=== PATIENT | female | born 1975 | race Caucasian/White ===

== ENCOUNTER 2017-02-27 16:43 | Emergency (ER) | payer MEDICAID ==
[2017-02-27 16:54] VITALS: BP 110/76; PULSE 76; RESP 16; TEMP 98.6; O2SAT 98
--- NOTE | 2017-02-27 17:08 | EDPHY ---
H & P Stated Complaint: L rib area pain/strain tender -after pulling junfrederic weeks 2 weeks ago- Time Seen by Provider: 02/27/17 16:57 HPI/ROS: CHIEF COMPLAINT: Left lower rib pain after pulling a weeks HISTORY OF PRESENT ILLNESS: 42-year-old female, daily smoker, complaining of left lower rib pain which started immediately when she was at work 2 weeks ago pulling a a weeks out of the ground, describes right difficult applied of the ground and felt a pop sensation her left lower ribs. This pain continues and is reproducible with inspiration, palpation. She exercises daily, runs daily and never experiences dyspnea with exertion or chest pain with exertion, never has to cease activity secondary to unexpected exertion. She denies abdominal pain. PRIMARY CARE PROVIDER: REVIEW OF SYSTEMS: A ten point review of systems was performed and is negative with the exception of the items mentioned in the HPI PAST MEDICAL & SURGICAL HISTORY: No pertinent medical or surgical history SOCIAL HISTORY: PHYSICAL EXAM (Prior to examination, patient consented to physical exam, hands were washed and my usual and customary physical exam procedures followed) 1) GENERAL: Well-developed, well-nourished, alert and oriented. Appears to be in no acute distress. 2) HEAD: Normocephalic, atraumatic 3) HEENT: Pupils equal, round, reactive to light bilaterally. Sclera anicteric. 4) NECK: Full range of motion, no meningeal signs. 5) LUNGS: Clear auscultation bilaterally, no wheezes, no rhonchi, no retractions. 6) HEART: Regular rate and rhythm, no murmur, no heave, no gallop. For tender to palpation left lower ribs anterior axillary line with no visible abnormality. 7) ABDOMEN: No guarding, no rebound, no focal tenderness, negative McBurney's, negative Knight's, negative Rovsing's, negative peritoneal sign, no splenomegaly or left upper quadrant abdominal pain 8) MUSCULOSKELETAL: Moving all extremities, no focal areas of tenderness, no obvious trauma. No peripheral edema or discoloration. 9) BACK: No CVA tenderness, no midline vertebral tenderness, no fluctuance, no step-off, no obvious trauma, no visual or palpable abnormality. 10) SKIN: No rash, no petechiae. 11) Psychiatric: Patient is oriented X 3, there is no agitation. DIFFERENTIAL DIAGNOSIS: in no particular order including but limited to fracture, sprain, pneumothorax, hemothorax - Personal History LMP (Females 10-55): 8-14 Days Ago Current Tetanus/Diphtheria Vaccine: Unsure Current Tetanus Diphtheria and Acellular Pertussis (TDAP): Unsure - Medical/Surgical History Hx Asthma: No Hx Chronic Respiratory Disease: No Hx Diabetes: No Hx Cardiac Disease: No Hx Renal Disease: No Hx Cirrhosis: No Hx Alcoholism: No Hx HIV/AIDS: No Hx Splenectomy or Spleen Trauma: No Other PMH: cristi, r shoulder issues, deg disk disease - Social History Smoking Status: Never smoked Constitutional: Initial Vital Signs Temperature (C) 37.0 C 02/27/17 16:50 Heart Rate 76 02/27/17 16:50 Respiratory Rate 16 02/27/17 16:50 Blood Pressure 110/76 02/27/17 16:50 O2 Sat (%) 98 02/27/17 16:50 O2 Delivery Mode Room Air Allergies/Adverse Reactions: hydromorphone [From Dilaudid] Allergy (Verified 02/27/17 16:49) risperidone [From Risperdal] Allergy (Verified 02/27/17 16:49) trazodone Allergy (Verified 02/27/17 16:49) Home Medications: Medication Instructions Recorded Cyclobenzaprine [Flexeril 10 MG 10 mg PO TID #10 tab 02/27/17 (RX)] Flexeril 02/27/17 Lyrica 02/27/17 Prevacid 02/27/17 Wellbutrin Xl 02/27/17 Medical Decision Making ED Course/Re-evaluation: Patient is low risk for pulmonary embolus, not tachycardic, not tachypneic, no coagulopathic disorder, no exogenous estrogen use. Doubt splenic pathology, doubt pulmonary embolus, doubt pneumothorax, doubt cardiac etiology. We discussed possible rib contusion or pathology. Patient has been given incentive spirometer. I discussed her negative x-ray. She has been given Flexeril and usual precautions, given work note.Care of patient under supervision of secondary supervising physician Dr Richard . Departure - Departure Disposition: Home, Routine, Self-Care Clinical Impression: Rib pain on left side Condition: Good Instructions: Rib Contusion (ED) Additional Instructions: Use your incentive spirometer every hour while awake. Seek immediate medical attention develop new or worsening symptoms. Referrals: NASIM GIANG [Other] - 1-2 days without fail Stand Alone Forms: Work Limited Duty Prescriptions: Cyclobenzaprine [Flexeril 10 MG (RX)] 10 mg PO TID #10 tab
== END 2017-02-27 17:45 | disposition home or self-care (01) ==
DX: S29.9XXA Unspecified injury of thorax, initial encounter (principal); X50.9XXA Other and unspecified overexertion or strenuous movements or postures, initial encounter; Y92.89 Other specified places as the place of occurrence of the external cause; Y99.8 Other external cause status; Y93.89 Activity, other specified

== ENCOUNTER 2017-05-02 20:05 | Emergency (ER) | payer MEDICAID ==
--- NOTE | 2017-05-02 20:27 | EDPHY ---
H & P Smoking Status: Never smoked Time Seen by Provider: 05/02/17 20:11 HPI/ROS: CHIEF COMPLAINT: Syncope, back pain HISTORY OF PRESENT ILLNESS: 42-year-old female presents to the emergency department by private vehicle after having a syncopal episode this morning around 11:00 a.m.. Patient states that she got up and went into the bathroom and was feeling a bit dizzy and then had a syncopal episode witnessed by her friend. She is having some pain in her right low back. She does not think that she hit her head. She does not have a headache now. She has some mild neck and back pain. Denies chest pain or difficulty breathing. Denies abdominal pain or vomiting. Denies injury to her lower extremities. She has some pain in her left elbow. Denies numbness or tingling in her fingers or toes. REVIEW OF SYSTEMS: Constitutional: No fever, no chills. Eyes: No double or blurry vision. ENT: No sore throat. Respiratory: No cough, no shortness of breath. Cardiac: No chest pain. Gastrointestinal: No abdominal pain, vomiting or diarrhea. Genitourinary: No dysuria. Musculoskeletal: Back pain as above. No neck pain. Skin: No rashes. Neurological: No headache. (Carmen Giang) Past Medical/Surgical History: Depression, anxiety (Rahat,Carmen M) Social History: Lives in [place] (Carmen Giang) Physical Exam: General Appearance: Alert, no distress. No visible signs of trauma to her head. She is mentating normally and answering questions appropriately. Eyes: Pupils equal and round. Extraocular motions are all intact. ENT: Mouth: Mucous membranes moist. Respiratory: No wheezing, rhonchi, or rales, lungs are clear to auscultation. Cardiovascular: Regular rate and rhythm. Gastrointestinal: Abdomen is soft and nontender, no masses, no rebound or guarding, bowel sounds normal. Neurological: Alert and oriented x 3, cranial nerves II through XII grossly intact Skin: Warm and dry, no rashes. Musculoskeletal: Mild tenderness with palpation to the right low back overlying SI joint area. No palpable crepitus or other bony abnormality. Straight leg raise is negative bilaterally. Full flexion extension of her knees to her chest without difficulty. Normal gait. Extremities: Full range of motion and no peripheral edema. Psychiatric: Patient is oriented X 3, there is no agitation. (Carmen Giang) Constitutional: Initial Vital Signs Temperature (C) 37.2 C 05/02/17 20:08 Heart Rate 94 05/02/17 20:08 Respiratory Rate 18 05/02/17 20:08 Blood Pressure 113/80 05/02/17 20:08 O2 Sat (%) 97 05/02/17 20:08 O2 Delivery Mode Room Air Allergies/Adverse Reactions: hydromorphone [From Dilaudid] Allergy (Verified 05/02/17 20:11) risperidone [From Risperdal] Allergy (Verified 05/02/17 20:11) trazodone Allergy (Verified 05/02/17 20:11) Home Medications: Medication Instructions Recorded Wellbutrin Xl 02/27/17 Cyclobenzaprine [Flexeril] 10 mg PO TIDPRN PRN #12 tab 05/02/17 Medical Decision Making - Diagnostics EKG Interpretation: EKG: Complete interpretation has been separately recorded in the TraceNewformastQuick Key archive. Summary impression: Sinus rhythm (Yasmany Neri) Imaging Results: Imaging Impressions Lumbar Spine X-Ray 05/02/17 20:54 Impression: 1. Mild anterior L1 and L2 height reductions, which are age-indeterminate. There is no posterior malalignment, or dorsal retropulsion. 2. Gpaffcny-ib-qowcym degenerative disk space narrowing at L5-S1. 3. Mild rotatory lumbar scoliosis. Other Provider: PHYSICIAN DOCUMENTATION: The patient was evaluated and managed by the Physician Dye Weigher Helper. My co- signature indicates that I have reviewed this chart and I agree with the findings and plan of care as documented. I am the secondary supervising physician. (Yasmany Neri) - Data Points Laboratory Results: Laboratory Results 05/02/17 20:30 05/02/17 20:30 05/02/17 05/02/17 05/02/17 20:30 20:30 20:30 WBC 8.27 10^3/uL 10^3/uL (3.80-9.50) RBC 4.45 10^6/uL 10^6/uL (4.18-5.33) Hgb 14.2 g/dL g/dL (12.6-16.3) Hct 40.1 % % (38.0-47.0) MCV 90.1 fL fL (81.5-99.8) MCH 31.9 pg pg (27.9-34.1) MCHC 35.4 g/dL g/dL (32.4-36.7) RDW 11.8 % % (11.5-15.2) Plt Count 335 10^3/uL 10^3/uL (150-400) MPV 9.3 fL fL (8.7-11.7) Neut % (Auto) 66.6 % % (39.3-74.2) Lymph % (Auto) 22.9 % % (15.0-45.0) [place] % (Auto) 7.1 % % (4.5-13.0) Eos % (Auto) 2.1 % % (0.6-7.6) Baso % (Auto) 1.1 % % (0.3-1.7) Nucleat RBC Rel Count 0.0 % % (0.0-0.2) Absolute Neuts (auto) 5.51 10^3/uL 10^3/uL (1.70-6.50) Absolute Lymphs (auto) 1.89 10^3/uL 10^3/uL (1.00-3.00) Absolute Monos (auto) 0.59 10^3/uL 10^3/uL (0.30-0.80) Absolute Eos (auto) 0.17 10^3/uL 10^3/uL (0.03-0.40) Absolute Basos (auto) 0.09 10^3/uL 10^3/uL (0.02-0.10) Absolute Nucleated RBC 0.00 10^3/uL 10^3/uL (0-0.01) Immature Gran % 0.2 % % (0.0-1.1) Immature Gran # 0.02 10^3/uL 10^3/uL (0.00-0.10) Sodium 138 mEq/L mEq/L (134-144) Potassium 3.0 mEq/L L mEq/L (3.5-5.2) Chloride 87 mEq/L L mEq/L (97-110) Carbon Dioxide 38 mEq/l H mEq/l (22-31) Anion Gap 13 mEq/L mEq/L (8-16) BUN 16 mg/dL mg/dL (7-23) Creatinine 1.1 mg/dL H mg/dL (0.6-1.0) Estimated GFR 54 Glucose 98 mg/dL mg/dL (70-100) Calcium 9.4 mg/dL mg/dL (8.5-10.4) Beta HCG, Qual NEGATIVE Medications Given: Discontinued Medications Sodium Chloride (Ns) 1,000 mls @ 0 mls/hr IV ONCE ONE PRN Reason: Wide Open Stop: 05/02/17 21:17 Last Admin: 05/02/17 21:21 Dose: 1,000 mls Departure - Departure Disposition: Home, Routine, Self-Care Clinical Impression: Syncope Qualifiers: Syncope type: unspecified Qualified Code(s): R55 - Syncope and collapse Low back pain Qualifiers: Chronicity: acute Back pain laterality: right Sciatica presence: with sciatica Sciatica laterality: sciatica of right side Qualified Code(s): M54.41 - Lumbago with sciatica, right side Condition: Good Instructions: Syncope (ED), Low Back Strain (ED), Acute Low Back Pain (ED) Additional Instructions: Ibuprofen 600 mg every 8 hr as needed for pain. Flexeril as needed for muscular spasms. Activity as tolerated. Return to the emergency department if you have any recurring syncopal activities or any other concerns. Referrals: NASIM STARK [Other] - As per Instructions Prescriptions: Cyclobenzaprine [Flexeril] 10 mg PO TIDPRN PRN #12 tab PRN Reason: P.r.n. spasms
--- NOTE | 2017-05-02 20:34 | CPEKG ---
Heart Rate: 75 RR Interval: 800 P-R Interval: 152 QRSD Interval: 84 QT Interval: 440 QTC Interval: 492 P [place]: 17 QRS [place]: 42 T Wave [place]: 27 EKG Severity - BORDERLINE ECG - EKG Impression: SINUS RHYTHM Electronically Signed By: Yasmany Neri 02-May-2017 20:35:27
[2017-05-02 20:48] LABS: PLATELET COUNT 335 10^3/uL (150-400)
[2017-05-02] MEDS ORDERED: NS 1,000 ML IV ONE (21:16)
[2017-05-02] MEDS ORDERED: CYCLOBENZAPRINE 10MG PREPACK#3 BTL TAKEHOME ONE (21:41)
[2017-05-02 22:18] VITALS: BP 125/68; PULSE 78; RESP 16; TEMP 97.9; O2SAT 96
== END 2017-05-02 22:18 | disposition home or self-care (01) ==
DX: R55 Syncope and collapse (principal); M54.41 Lumbago with sciatica, right side

== ENCOUNTER 2017-07-19 21:25 | Emergency (ER) | payer MEDICAID ==
[2017-07-19 21:34] VITALS: TEMP 98.1
--- NOTE | 2017-07-19 22:18 | EDPHY ---
H & P Smoking Status: Never smoked Time Seen by Provider: 07/19/17 21:40 HPI/ROS: CHIEF COMPLAINT: Rectal bleeding HISTORY OF PRESENT ILLNESS: 42-year-old female presents to the emergency department with rectal bleeding. The patient states that over last 3 days she has had blood in her stools. She states that she has even had rectal bleeding without formed stool. No reported diarrhea. No nausea or vomiting. Really no abdominal pain. She was just hoping that this would resolve on its own. She denies eating any beets or any other foods that might change her stool color. She denies chest pain or difficulty breathing. She does take ibuprofen typically 2 or 3 times per week. She denies any abdominal pain. Normal appetite. REVIEW OF SYSTEMS: Constitutional: No fever, no chills. Eyes: No double or blurry vision. ENT: No sore throat. Respiratory: No cough, no shortness of breath. Cardiac: No chest pain. Gastrointestinal: No abdominal pain, vomiting or diarrhea. Genitourinary: No dysuria. Musculoskeletal: No neck or back pain. Skin: No rashes. Neurological: No headache. (Carmen Giang) Past Medical/Surgical History: Depression, anxiety, cholecystectomy, orthopedic injuries (Carmen Giang) Social History: Single and lives in [place] (Carmen Giang) Physical Exam: General Appearance: Alert, no distress. 141/81, heart rate 98, 99% on room air. Eyes: Pupils equal and round. Extraocular motions are all intact. ENT: Mouth: Mucous membranes moist. Respiratory: No wheezing, rhonchi, or rales, lungs are clear to auscultation. Cardiovascular: Regular rate and rhythm. Gastrointestinal: Abdomen is soft and nontender, no masses, no rebound or guarding, bowel sounds normal. Neurological: Alert and oriented x 3, cranial nerves II through XII grossly intact Rectal exam: Rectal exam was performed with nurseKarma, at bedside. No evidence of external thrombosed hemorrhoid. Digital rectal exam reveals gross blood without evidence of stool. No palpable masses on rectal examination. Skin: Warm and dry, no rashes. Musculoskeletal: Nontender to palpate along the cervical, thoracic or lumbar spine. Neck is supple. Extremities: Full range of motion and no peripheral edema. Psychiatric: Patient is oriented X 3, there is no agitation. (RahatCarmen Carrion) Constitutional: Initial Vital Signs Temperature (C) 36.7 C 07/19/17 21:29 Heart Rate 98 07/19/17 21:29 Respiratory Rate 18 07/19/17 21:29 Blood Pressure 114/81 H 07/19/17 21:29 O2 Sat (%) 99 07/19/17 21:29 O2 Delivery Mode Room Air Allergies/Adverse Reactions: hydromorphone [From Dilaudid] Allergy (Verified 05/02/17 20:11) risperidone [From Risperdal] Allergy (Verified 05/02/17 20:11) trazodone Allergy (Verified 05/02/17 20:11) Home Medications: Medication Instructions Recorded Cyclobenzaprine [Flexeril] 10 mg PO TIDPRN PRN #12 tab 05/02/17 Ibuprofen [Ibuprofen Ib] 600 mg PO TID PRN #20 tablet 05/02/17 Acyclovir 07/19/17 Gabapentin [Neurontin 300 MG (*)] 07/19/17 Medical Decision Making ED Course/Re-evaluation: 42-year-old female presents to the emergency department with rectal bleeding. Patient has no reports of diarrhea. On rectal examination she had ale blood without evidence of external thrombosed hemorrhoid. No palpable internal hemorrhoid. CBC has been ordered. The patient is refusing blood work. She apparently has a history of substance abuse and is a very difficult stick. She does not want us to use the vein finding ultrasound. She does not want the blood work. She would like to follow up with her primary care provider this week. I encouraged the patient to return to the emergency department if she developed worsening rectal bleeding, abdominal pain or if she felt worse in any way. She was given referral to supply tech, Dr. Guillermo, on-call. (Carmen Giang) I did not see this patient while she was in the emergency department. However her care was discussed with the PA while the patient was in the emergency department. I agree with treatment plan and management (Gallito Fiore) Differential Diagnosis: Including but not limited to external hemorrhoids, internal hemorrhoids, colitis , polyp, inflammatory bowel disease (Carmen Giang) Departure - Departure Disposition: Home, Routine, Self-Care Clinical Impression: Rectal bleeding Condition: Good Instructions: Rectal Bleeding (ED) Additional Instructions: You declined blood work in the emergency department. Please follow up with her primary care provider this week to recheck. You should follow up with supply tech for likely colonoscopy to determine source of year rectal bleeding. Please return to the emergency department sooner if you feel worse in any way. Referrals: Cortez Guillermo MD [Medical Doctor] - 2-3 days, call for appt. (Fire Control Technician B on-call)
[2017-07-19 22:58] VITALS: BP 109/82; PULSE 92; RESP 16; O2SAT 98
== END 2017-07-19 22:56 | disposition home or self-care (01) ==
DX: K62.5 Hemorrhage of anus and rectum (principal)

== ENCOUNTER 2017-08-17 21:17 | Emergency (ER) | payer MEDICAID ==
[2017-08-17] MEDS ORDERED: KETOROLAC 30 MG/1 ML SDV IVP ONE (23:32)
[2017-08-17] MEDS ORDERED: NS 1,000 ML IV ONE (23:32)
[2017-08-17] MEDS ORDERED: DEXAMETHASONE 10 MG/ML VIAL IVP ONE (23:32)
[2017-08-17] MEDS ORDERED: OXYCODONE/APAP 5/325 TAB PO ONE (23:33)
--- NOTE | 2017-08-17 23:36 | EDPHY ---
H & P Stated Complaint: POS STREP TODAY, WORRIED ABOUT PUSPOCKET, VOMIT X1 Time Seen by Provider: 08/17/17 23:33 HPI/ROS: HPI: This is a 42-year-old female who presents with Chief Complaint: POS STREP TODAY, WORRIED ABOUT PUS POCKET, VOMIT X1 Location: throat Quality: pain Duration: 1 day Signs and Symptoms: + low-grade fever, + nausea, + vomiting, no diarrhea, no urinary symptoms, no chest pain, no shortness of breath, no wheezing, no cough, no neck stiffness, no joint pain, no swollen glands, no ear pain, no rash Timing: Acute, constant Severity: Moderate to severe Context: Patient's reports that she woke up this morning with moderate sore throat, low-grade fever, swollen glands. She reports that she did not cough. She did have some nausea and vomited x1. She went to urgent care; rapid strep was positive; given penicillin for which she reports compliance. Also given Zofran viscous lidocaine with transient relief of throat discomfort. Patient reports that it hurts her to eat food but she is able to drink liquids. Patient is concerned as she has white exudate on both tonsils that she noticed this evening. Modifying Factors: See above Comment: ROS: see HPI Constitutional: + fever, no chills, no weight loss Eyes: No blurred vision Respiratory: No shortness of breath, no cough Cardiovascular: No chest pain, no palpitations Gastrointestinal: No nausea, no vomiting, no diarrhea, no hematemesis, no blood in stool Genitourinary: No dysuria, no blood in urine Extremities: No myalgias, no edema Neurologic: No weakness, no numbness Skin: No rashes, no petechiae Hematologic: No bruising, no bleeding MEDICAL/SURGICAL/SOCIAL HISTORY: Medical history: Generally healthy. Does not take any regular medications. Surgical history: Denies Social history: Family history noncontributory. CONSTITUTIONAL: nontoxic appearing adult middle aged white female awake and alert, no obvious distress HEENT: Atraumatic and normocephalic, PERRL, EOMI. Nares patent; no rhinorrhea; no nasal mucosal edema. Tympanic membranes clear. Oropharynx clear, tonsils 1+ ; moderate erythema; uvula midline; white exudate and moist pink mucosa. Airway patent. + anterior spotty cervical lymphadenopathy. No meningismus. Cardiovascular: Normal S1/S2, regular rate, regular rhythm, without murmur rub or gallop. PULMONARY/CHEST: Symmetrical and nontender. Clear to auscultation bilaterally. Good air movement. No accessory muscle usage. ABDOMEN: Soft, nondistended, nontender, no rebound, no guarding, no peritoneal signs, no masses or organomegaly. No CVAT. EXTREMITIES: 2/2 pulses, strength 5/5, no deformities, no clubbing, no cyanosis or edema. NEUROLOGICAL: no focal neuro deficits. GCS 15. SKIN: Warm and dry, no erythema. no rash. Good capillary refill. Source: Patient Exam Limitations: No limitations - Personal History LMP (Females 10-55): 8-14 Days Ago Current Tetanus/Diphtheria Vaccine: Yes Tetanus Vaccine Date: 2017 - Medical/Surgical History Hx Asthma: No Hx Chronic Respiratory Disease: No Hx Diabetes: No Hx Cardiac Disease: No Hx Renal Disease: No Hx Cirrhosis: No Hx Alcoholism: No Hx HIV/AIDS: No Hx Splenectomy or Spleen Trauma: No Other PMH: depression. anxiety. cristi, r shoulder issues, deg disk disease - Social History Smoking Status: Never smoked Constitutional: Initial Vital Signs Temperature (C) 37.2 C 08/17/17 22:06 Heart Rate 92 08/17/17 22:06 Respiratory Rate 20 08/17/17 22:06 Blood Pressure 109/63 08/17/17 22:06 O2 Sat (%) 99 08/17/17 22:06 O2 Delivery Mode Room Air Allergies/Adverse Reactions: hydromorphone [From Dilaudid] Allergy (Verified 08/17/17 22:05) risperidone [From Risperdal] Allergy (Verified 08/17/17 22:05) trazodone Allergy (Verified 08/17/17 22:05) Home Medications: Medication Instructions Recorded Cyclobenzaprine [Flexeril] 10 mg PO TIDPRN PRN #12 tab 05/02/17 Ibuprofen [Ibuprofen Ib] 600 mg PO TID PRN #20 tablet 05/02/17 Acyclovir 07/19/17 Gabapentin [Neurontin 300 MG (*)] 07/19/17 Hydrocodone-Acetamin 5-325 mg 08/17/17 oxyCODONE/APAP 5/325 [Percocet 1 - 2 tab PO Q4H PRN #10 tab 08/18/17 5/325 (*)] Medical Decision Making ED Course/Re-evaluation: No signs of airway compromise/meningitis/dehydration Patient given 1 L normal saline, IV Toradol, IV Decadron and p.o. Percocet with adequate relief of pain Passed p.o. Trial prior to discharge. advised to complete penicillin course/supportive care. This patient was seen under the supervision of my secondary supervising physician. I evaluated care for this patient independently. Discussed this patient with Dr. Richard who did not see the patient. Differential Diagnosis: Differential diagnosis includes but is not limited to strep pharyngitis, uncontrolled pain, tonsillar abscess, post pharyngeal abscess. - Data Points Medications Given: Discontinued Medications Dexamethasone (Decadron Injection) 8 mg IVP EDNOW ONE Stop: 08/17/17 23:33 Last Admin: 08/17/17 23:46 Dose: 8 mg Sodium Chloride (Ns) 1,000 mls @ 0 mls/hr IV EDNOW ONE; Wide Open PRN Reason: Protocol Stop: 08/17/17 23:33 Last Admin: 08/17/17 23:45 Dose: 1,000 mls Ketorolac Tromethamine (Toradol) 30 mg IVP EDNOW ONE Stop: 08/17/17 23:33 Last Admin: 08/17/17 23:45 Dose: 30 mg Oxycodone/Acetaminophen (Percocet 5/325) 1 tab PO EDNOW ONE Stop: 08/17/17 23:34 Last Admin: 08/17/17 23:47 Dose: 1 tab Departure - Departure Disposition: Home, Routine, Self-Care Clinical Impression: Strep pharyngitis Condition: Good Instructions: Strep Throat (ED) Additional Instructions: Consume a minimum of 8-10 glasses of water or electrolyte fluid replacement drinks that include Gatorade, Powerade, Pedialyte. Eat a bland diet for the next 48 hours and then slowly advance as tolerated. Take Penicillin as directed until fully complete. Do not miss a dose. Take Tylenol 650 mg every 4 hours and/or Ibuprofen 600 mg every 8 hours with food as needed for pain. Use Percocet every 4 hours as needed for severe/break through pain. Do not use Tylenol and Percocet concomitantly. Return to the ER immediately if you experience fevers/chills, shortness of breath, abdominal pain, inability to tolerate oral intake, or any other symptoms that concern you. Referrals: [facility],. [Clinic] - 3-4 days, if not improved Prescriptions: oxyCODONE/APAP 5/325 [Percocet 5/325 (*)] 1 - 2 tab PO Q4H PRN #10 tab PRN Reason: Pain, Severe
[2017-08-18 00:58] VITALS: BP 109/73
== END 2017-08-18 00:58 | disposition home or self-care (01) ==
DX: J02.0 Streptococcal pharyngitis (principal); E86.9 Volume depletion, unspecified
CPT/HCPCS: 96374; J1100; J1885

== ENCOUNTER 2017-09-10 16:57 | Emergency (ER) | payer MEDICAID ==
[2017-09-10] MEDS ORDERED: ACETAMINOPHEN 500 MG TAB PO ONE (17:26)
--- NOTE | 2017-09-10 18:01 | EDPHY ---
H & P Smoking Status: Former smoker Time Seen by Provider: 09/10/17 17:25 HPI/ROS: Chief complaint: Sore throat History of present illness: This is a 42-year-old female who presents to the emergency department for a sore throat. Symptoms began this morning. She states the throat also feels swollen. Her ears also hurt. She denies precipitating factors. She denies alleviating factors. She denies other associated signs or symptoms: No fevers, no cough, no chest congestion, no headache or neck pain, no rash. She had similar symptoms a few weeks ago and was diagnosed with strep throat, she took an entire course of amoxicillin and she feels symptoms resolved. Review of systems: 10 point review of systems was obtained and other than described above was negative (Eddie Garay) Physical Exam: General Appearance: Alert and no distress. Eyes: Pupils equal and round no injection. ENT: Tympanic membranes, external auditory canals, external ears and surrounding soft tissue including over the mastoids are unremarkable. Nasopharynx is not injected. There is no rhinorrhea. Oropharynx is mildly injected. There is no edema. There is no exudate. There is no asymmetry. The uvula is midline. No elevation of the tongue. There is no hoarseness, no drooling, no trismus, no stridor. Respiratory: Chest is non tender, lungs are clear to auscultation. Cardiac: regular rate and rhythm Gastrointestinal: Abdomen is soft and non tender, no masses, bowel sounds normal. Musculoskeletal: Neck is supple and non tender. Extremities have full range of motion and are non tender. Skin: No rashes or lesions. (Eddie Garay) Constitutional: Initial Vital Signs Temperature (C) 36.6 C 09/10/17 17:13 Heart Rate 90 09/10/17 17:13 Respiratory Rate 18 09/10/17 17:13 Blood Pressure 119/83 H 09/10/17 17:13 O2 Sat (%) 97 09/10/17 17:13 O2 Delivery Mode Room Air Allergies/Adverse Reactions: hydromorphone [From Dilaudid] Allergy (Verified 09/10/17 17:13) risperidone [From Risperdal] Allergy (Verified 09/10/17 17:13) trazodone Allergy (Verified 09/10/17 17:13) Home Medications: Medication Instructions Recorded Cyclobenzaprine [Flexeril] 10 mg PO TIDPRN PRN #12 tab 05/02/17 Ibuprofen [Ibuprofen Ib] 600 mg PO TID PRN #20 tablet 05/02/17 Acyclovir 07/19/17 Gabapentin [Neurontin 300 MG (*)] 07/19/17 Amoxicillin/Clavulanate Pot 875 mg PO BID #20 tab 09/10/17 [Augmentin 875 MG TAB (*)] Fluconazole [Diflucan (*)] 150 mg PO ONCE #1 tab 09/10/17 MDM/Departure - MDM Medications Given: Discontinued Medications Acetaminophen (Tylenol) 1,000 mg PO EDNOW ONE Stop: 09/10/17 17:27 Last Admin: 09/10/17 17:51 Dose: 1,000 mg Amoxicillin/Clavulanate Potassium (Augmentin 875mg) 875 mg PO EDNOW ONE PRN Reason: Protocol Stop: 09/10/17 18:30 Last Admin: 09/10/17 18:32 Dose: 875 mg ED Course/Re-evaluation: Patient seen under the supervision of my secondary supervising physician Dr. Gayla Tillman. Patient presents for a sore throat. She was recently treated for a strep infection. She does appear to have a pharyngitis, no evidence of complications such as abscess formation. Strep swab is again positive. [place] spot, influenza and RSV negative. I am concerned she has failed first-line treatment of strep throat with amoxicillin. I will place her on Augmentin. Home care is discussed. She is to follow up with her primary care doctor for recheck. Return precautions were given. Patient voiced understanding and agreement with plan. She is asked for a single dose of Diflucan as she usually gets yeast infections when she is on antibiotics and she has taken this before with good results. This is provided. (Eddie Garay) The patient was evaluated and managed by the Physician Roaster Operator. My co- signature indicates that I have reviewed this chart and I agree with the findings and plan of care as documented. I am the secondary supervising physician. (Gayla Tillman) - Depart Disposition: Home, Routine, Self-Care Clinical Impression: Strep throat Condition: Good Instructions: Amoxicillin/Clavulanate Potassium (By mouth), Strep Throat (ED) Additional Instructions: Follow-up with a primary care doctor for continued evaluation and care Use ibuprofen 600 mg 3 times a day for the next 2-3 days for symptom control Take all antibiotics as prescribed until finished even feeling better If symptoms worsen or new symptoms develop return to the emergency room for recheck Stand Alone Forms: Work Excuse Prescriptions: Amoxicillin/Clavulanate Pot [Augmentin 875 MG TAB (*)] 875 mg PO BID #20 tab Fluconazole [Diflucan (*)] 150 mg PO ONCE #1 tab Referrals: NONE *PRIMARY CARE P,. [Primary Care Provider] - As per Instructions
[2017-09-10] MEDS ORDERED: AMOXICILLIN/CLAVULANATE POT 875/125 MG TAB PO ONE (18:29)
[2017-09-10 18:42] VITALS: BP 121/78
== END 2017-09-10 18:43 | disposition home or self-care (01) ==
DX: J02.9 Acute pharyngitis, unspecified (principal); Z87.891 Personal history of nicotine dependence